=== PATIENT | female | born 1990 | race Caucasian/White ===

== ENCOUNTER → 2017-11-01 | Outpatient (CLI) | payer BC ==
[2017-11-01 09:57] LABS: HEMATOCRIT 36.1 % (37-47); HEMOGLOBIN 12.2 g/dL (12.0-16.0); MEAN CELL VOLUME 87.2 fL (80-100); MEAN CORPUSCULAR HEMOGLOBIN 29.5 pg (25-34); MEAN CORPUSCULAR HGB CONC 33.8 g/dl (32-36); MEAN PLATELET VOLUME 11.1 fL (7.4-10.4); PLATELET COUNT 328 K/uL (130-400); RED CELL DISTRIBUTION WIDTH CV 13.4 % (11.5-14.5); RED CELL DISTRIBUTION WIDTH SD 42.6 fL (36.4-46.3); WHITE BLOOD COUNT 8.86 K/uL (4.8-10.8)
[2017-11-01 10:16] LABS: ALBUMIN 2.5 gm/dl (3.4-5.0); ALT/SGPT 13 U/L (12-78); BLOOD UREA NITROGEN 3 mg/dl (7-18); CREATININE 0.56 mg/dl (0.60-1.20); URIC ACID 4.5 mg/dl (2.6-7.2)
[2017-11-01 10:19] LABS: ALKALINE PHOSPHATASE 141 U/L (45-117); AST/SGOT 13 U/L (15-37); TOTAL PROTEIN 6.4 gm/dl (6.4-8.2)
== END | disposition home or self-care (01) ==
LOC: C.LAB 09:12
PROVIDERS: ATTEND Nurse Practitioner Adult Health
DX: O12.03 Gestational edema, third trimester (principal)

== ENCOUNTER 2017-12-12 21:48 | Inpatient (IN) | payer BC ==
[~2017-12-12] VITALS: Ht 165.1 cm; Wt 94.0 kg
[2017-12-12 22:20] VITALS: BMI 34.5
[2017-12-12] MEDS ORDERED: RANI150T85 PO ×2 (22:23)
[2017-12-12] MEDS ORDERED: PRENTAB26 PO ×2 (22:23)
[2017-12-12] MEDS ORDERED: ACETAMINOPHEN 325 MG TAB PO PRN (22:30)
[2017-12-12] MEDS ORDERED: AZITHROMYCIN 250 MG TAB PO ONE (22:45)
[2017-12-12 22:47] LABS: BASO % 0.2 %; BASO ABS # 0.03 K/uL (0-0.2); EOS % 0.1 %; EOS ABS # 0.01 K/uL (0-0.5); HEMATOCRIT 33.3 % (37-47); HEMOGLOBIN 11.3 g/dL (12.0-16.0); IG# 0.18 K/uL (0.00-0.02); LYMPH % 22.8 %; LYMPH ABS # 3.37 K/uL (1.2-3.4); MEAN CELL VOLUME 88.1 fL (80-100); MEAN CORPUSCULAR HEMOGLOBIN 29.9 pg (25-34); MEAN CORPUSCULAR HGB CONC 33.9 g/dl (32-36); MONO % 9.5 %; NEUT % 66.2 %; NEUT ABS # 9.79 K/uL (1.4-6.5); PLATELET COUNT 282 K/uL (130-400); RED CELL DISTRIBUTION WIDTH CV 14.1 % (11.5-14.5); RED CELL DISTRIBUTION WIDTH SD 45.4 fL (36.4-46.3); WHITE BLOOD COUNT 14.78 K/uL (4.8-10.8)
[2017-12-12 23:08] LABS: ALBUMIN 2.5 gm/dl (3.4-5.0); CALCIUM 8.6 mg/dl (8.5-10.1); CREATININE 0.98 mg/dl (0.60-1.20)
[2017-12-12 23:10] LABS: TOTAL PROTEIN 6.1 gm/dl (6.4-8.2)
[2017-12-12] MEDS ORDERED: LACTATED RINGER'S 1000ML 1,000 ML IV PRN (23:52)
[2017-12-13] MEDS ORDERED: DINOPROSTONE 10 MG INSERT PV ONE
[2017-12-13 00:09] VITALS: Ht 165.1 cm; Wt 94.0 kg
[2017-12-13] MEDS: LACTATED RINGER'S 1000ML 1,000 ML IV SCH ×3 (00:46→15:32)
[2017-12-13] MEDS ORDERED: BUTORPHANOL TARTRATE 1 MG/ML VIAL IV PRN (01:15)
[2017-12-13] MEDS ORDERED: CALCIUM CARBONATE 500 MG CHEWABLE ONE (01:23)
[2017-12-13 06:40] LABS: BASO % 0.2 %; BASO ABS # 0.03 K/uL (0-0.2); EOS % 0.7 %; EOS ABS # 0.09 K/uL (0-0.5); HEMATOCRIT 32.6 % (37-47); IG# 0.09 K/uL (0.00-0.02); LYMPH % 28.8 %; LYMPH ABS # 3.68 K/uL (1.2-3.4); MEAN CELL VOLUME 88.1 fL (80-100); MEAN CORPUSCULAR HEMOGLOBIN 29.7 pg (25-34); MEAN CORPUSCULAR HGB CONC 33.7 g/dl (32-36); MEAN PLATELET VOLUME 12.1 fL (7.4-10.4); MONO % 9.2 %; MONO ABS # 1.18 K/uL (0.11-0.59); NEUT % 60.4 %; NEUT ABS # 7.73 K/uL (1.4-6.5); PLATELET COUNT 269 K/uL (130-400); RED CELL DISTRIBUTION WIDTH CV 14.1 % (11.5-14.5); RED CELL DISTRIBUTION WIDTH SD 45.7 fL (36.4-46.3)
[2017-12-13 07:14] LABS: ALBUMIN 2.4 gm/dl (3.4-5.0); CALCIUM 9.3 mg/dl (8.5-10.1); CREATININE 0.95 mg/dl (0.60-1.20); POTASSIUM 3.6 mmol/L (3.5-5.1)
[2017-12-13 07:17] LABS: TOTAL PROTEIN 5.8 gm/dl (6.4-8.2)
[2017-12-13] MEDS: CALCIUM CARBONATE 500 MG CHEWABLE PO PRN ×3 (07:26→20:03)
[2017-12-13] MEDS ORDERED: MISOPROSTOLTAB 50 MCG TAB PO SCH (15:00)
[2017-12-13] MEDS ORDERED: LACTATED RINGER'S 1000ML 500 ML IV PRN (19:38)
[2017-12-13] MEDS ORDERED: OXYTOCIN 30 UNITS/500ML NSS IV PRN (19:45)
[2017-12-13] MEDS ORDERED: CALCIUM CARBONATE 500 MG CHEWABLE PO SCH (20:00)
[2017-12-13 20:09] LABS: HEMATOCRIT 34.6 % (37-47); HEMOGLOBIN 11.7 g/dL (12.0-16.0); MEAN CELL VOLUME 87.8 fL (80-100); MEAN CORPUSCULAR HEMOGLOBIN 29.7 pg (25-34); MEAN CORPUSCULAR HGB CONC 33.8 g/dl (32-36); MEAN PLATELET VOLUME 12.2 fL (7.4-10.4); PLATELET COUNT 291 K/uL (130-400); RED CELL DISTRIBUTION WIDTH CV 14.1 % (11.5-14.5); RED CELL DISTRIBUTION WIDTH SD 45.1 fL (36.4-46.3); WHITE BLOOD COUNT 13.14 K/uL (4.8-10.8)
[2017-12-13 20:28] LABS: ALBUMIN 2.5 gm/dl (3.4-5.0); CALCIUM 8.7 mg/dl (8.5-10.1); CREATININE 1.02 mg/dl (0.60-1.20)
[2017-12-13 20:32] LABS: TOTAL PROTEIN 6.1 gm/dl (6.4-8.2)
[2017-12-13 20:49] LABS: BASO % 0.3 %; BASO ABS # 0.04 K/uL (0-0.2); EOS % 0.5 %; EOS ABS # 0.07 K/uL (0-0.5); LYMPH % 26.7 %; LYMPH ABS # 3.51 K/uL (1.2-3.4); MONO % 12.6 %; MONO ABS # 1.66 K/uL (0.11-0.59); NEUT % 59.1 %; NEUT ABS # 7.76 K/uL (1.4-6.5)
[2017-12-13] MEDS: ONDANSETRON INJ 2 MG/ML 2 ML VIAL IV PRN (21:57)
[2017-12-13] MEDS: AZITHROMYCIN 250 MG TAB PO SCH (22:00)
[2017-12-13] MEDS ORDERED: LACTATED RINGER'S 1000ML 1,000 ML IV SCH (22:31)
[2017-12-13] MEDS ORDERED: MAGNESIUM SULFATE / WTR 1,000 ML IV ONE (22:31)
[2017-12-13] MEDS ORDERED: HydrALAZINE HCL 20 MG/ML VIAL IV. PRN (22:45)
[2017-12-13] MEDS ORDERED: LABETALOL HCL IV 5 MG/ML 20ML IV PRN (22:45)
[2017-12-13] MEDS: LABETALOL HCL 100 MG TAB PO SCH (23:10)
[2017-12-14] MEDS: LACTATED RINGER'S 1000ML 1,000 ML IV SCH ×2 (00:42→05:46)
[2017-12-14] MEDS ORDERED: FENTANYL 2MCG/ML ROPIV 1.25MG/ML 100ML BAG EPI ONE (02:16)
[2017-12-14] MEDS ORDERED: BUPIVACAINE 0.25% 30 ML VIAL ONE ×2 (02:16→06:03)
[2017-12-14] MEDS ORDERED: FENTANYL CITRATE INJ 50 MCG/1 ML 2 ML VIAL ONE ×2 (02:16→14:39)
[2017-12-14] MEDS ORDERED: EpHEDrine SULFATE INJ 50 MG/ML AMP ONE (02:16)
[2017-12-14] MEDS: ONDANSETRON INJ 2 MG/ML 2 ML VIAL IV PRN ×3 (02:38→21:33)
[2017-12-14] MEDS: CALCIUM CARBONATE 500 MG CHEWABLE PO PRN ×3 (03:20→19:12)
[2017-12-14] MEDS ORDERED: NALOXONE HCL INJ 1 MG in SODIUM CHLORIDE 0.9% 1000ML 1,000 ML IV PRN ×2 (03:21→19:42)
[2017-12-14] MEDS ORDERED: LACTATED RINGER'S 1000ML 500 ML IV PRN ×2 (03:21→19:42)
[2017-12-14] MEDS ORDERED: NALOXONE HCL INJ 0.4 MG/1 ML VIAL/CARP IV PRN (03:30)
[2017-12-14] MEDS ORDERED: NALBUPHINE HCL INJ 10 MG/ML AMP IV PRN ×2 (03:30→19:45)
[2017-12-14] MEDS ORDERED: EpHEDrine SULFATE INJ 50 MG/ML AMP IV PRN ×2 (03:30→19:45)
[2017-12-14] MEDS ORDERED: ONDANSETRON INJ 2 MG/ML 2 ML VIAL IV PRN ×3 (03:30→19:45)
[2017-12-14] MEDS ORDERED: DiphenhydrAMINE HCL 50 MG/ML VIAL IV PRN ×3 (03:30→19:45)
[2017-12-14] MEDS: FENTANYL 2MCG/ML ROPIV 1.25MG/ML 100ML BAG EPI PRN ×4 (05:44→13:12)
[2017-12-14] MEDS ORDERED: CEFAZOLIN IV 2,000 MG in SYRINGE 0 ML IV SCH ×2 (06:00→18:00)
[2017-12-14 06:12] LABS: BASO % 0.2 %; BASO ABS # 0.02 K/uL (0-0.2); EOS % 0.2 %; EOS ABS # 0.02 K/uL (0-0.5); HEMATOCRIT 35.8 % (37-47); HEMOGLOBIN 11.7 g/dL (12.0-16.0); IG# 0.07 K/uL (0.00-0.02); LYMPH % 17.5 %; LYMPH ABS # 2.32 K/uL (1.2-3.4); MEAN CELL VOLUME 89.1 fL (80-100); MEAN CORPUSCULAR HEMOGLOBIN 29.1 pg (25-34); MEAN CORPUSCULAR HGB CONC 32.7 g/dl (32-36); MEAN PLATELET VOLUME 12.5 fL (7.4-10.4); MONO % 7.9 %; MONO ABS # 1.05 K/uL (0.11-0.59); NEUT % 73.7 %; NEUT ABS # 9.76 K/uL (1.4-6.5); NUCLEATED RED BLOOD CELL ABS 0.02 K/uL (0-0); PLATELET COUNT 316 K/uL (130-400); RED CELL DISTRIBUTION WIDTH CV 14.3 % (11.5-14.5); RED CELL DISTRIBUTION WIDTH SD 46.8 fL (36.4-46.3); WHITE BLOOD COUNT 13.24 K/uL (4.8-10.8)
[2017-12-14 06:41] LABS: ALBUMIN 2.5 gm/dl (3.4-5.0); CALCIUM 8.7 mg/dl (8.5-10.1); CREATININE 1.09 mg/dl (0.60-1.20)
[2017-12-14 06:44] LABS: TOTAL PROTEIN 6.1 gm/dl (6.4-8.2)
[2017-12-14] MEDS ORDERED: CITRIC ACID/SODIUM CITRATE 15 ML UDC PO PRN (08:15)
[2017-12-14] MEDS ORDERED: NURSING VERBAL MED ORDER ONE (08:15)
[2017-12-14] MEDS: LABETALOL HCL 100 MG TAB PO SCH ×2 (08:25→20:00)
[2017-12-14] MEDS ORDERED: CITRIC ACID/SODIUM CITRATE 15 ML UDC PO ONE (14:15)
[2017-12-14] MEDS ORDERED: MoRPHine SULFATE PF 1 MG/ML 10 ML AMP/VIAL ONE (14:39)
[2017-12-14] MEDS ORDERED: OXYTOCIN INJ 10 UNITS/ML VIAL ONE ×3 (14:41→16:09)
--- NOTE | 2017-12-14 14:58 | HISTORY & PHYSICAL EXAMINATION ---
DATE OF ADMISSION: 12/12/2017 CHIEF COMPLAINT: 1. The intrauterine at 37 weeks and 6 days gestation. 2. Preeclampsia without severe features and failure to progress. HISTORY OF PRESENT ILLNESS: The patient is a 27-year-old 1, para 0 at 37 weeks and 6 days gestation, who was admitted to labor and delivery on the evening of 12/12/2017 with elevated blood pressures at home. She checked her blood pressures at home in the afternoon and was found to be 140/100 with repeat of 140s/90s. On presentation to labor and delivery, her blood pressures were in the 130s to 140s/70s to 90s and 1+ protein on urinalysis. On her [facility] labs, it was found that she had an elevated AST of 370 and an ALT of 386 with a creatinine of 0.98. Therefore, she was admitted for induction. She was found to be closed, thick, and -3. She was given Cervidil for cervical ripening on the morning of 12/13/2017 and on the afternoon of 12/13/2017, her Cervidil was removed. She was still closed, 50% and -3 station. Her AST and ALT were slightly more elevated than previously. She received an epidural for anesthesia and oxytocin per protocol was used for labor augmentation. She was also started on magnesium sulfate for seizure prophylaxis due to elevating liver enzymes. She was found to be spontaneously ruptured around 06:30 a.m. on 12/14/2017 and she progressed spontaneously throughout the morning. She reached complete dilation at 11:38 a.m. She pushed for greater than 3 hours intermittently without any further descent. She remained at 0 station. Due to maternal exhaustion and failure to progress, the decision was made by the patient and her to proceed with a primary section. Risks, benefits, and alternatives were discussed with the patient and informed consent was obtained. PAST MEDICAL HISTORY: Significant for idiopathic scoliosis. PAST SURGICAL HISTORY: She had wisdom teeth removed. MEDICATIONS: vitamins, Colace, and Zantac. ALLERGIES: MONISTAT AND LACTOSE INTOLERANCE. LABS: Blood type is O negative, group B strep negative, rubella immune, hepatitis B surface antigen negative, RPR nonreactive and HIV negative. PHYSICAL EXAMINATION: VITAL SIGNS: Blood pressure is 143/96, heart rate is 104, respiration rate of 16, and temperature 97.8. GENERAL: The patient was awake, alert and oriented x3. HEART: Regular rate and rhythm. LUNGS: Clear to auscultation bilaterally. ABDOMEN: Gravid uterus, appropriate gestational age. Bowel sounds present x4. EXTREMITIES: No clubbing, cyanosis or calf tenderness. heart tones are category 1. ASSESSMENT AND PLAN: A 27-year-old 1, para 0 at 38 weeks and 1 day gestation was admitted to labor and delivery for preeclampsia without severe features along with elevated liver enzymes. Despite labor induction and augmentation, she failed to progress greater than 0 station. Due to failure to progress and maternal exhaustion, decision was made to proceed with a primary section. [place]
[2017-12-14] MEDS ORDERED: METHYLERGONOVINE MALEATE 0.2 MG/ML AMP ONE (15:10)
[2017-12-14] MEDS ORDERED: PHENYLEPHRINE HCL INJ 10 MG/ML VIAL ONE (15:55)
[2017-12-14] MEDS ORDERED: ONDANSETRON INJ 2 MG/ML 2 ML VIAL ONE (16:04)
[2017-12-14] MEDS ORDERED: OXYTOCIN INJ 30 UNITS in LACTATED RINGER'S 1000ML 1,000 ML IV SCH (16:44)
[2017-12-14] MEDS ORDERED: LACTATED RINGER'S 1000ML 1,000 ML IV SCH (16:44)
--- NOTE | 2017-12-14 16:44 | [facility] Post Operative Brief Note ---
Immediate Operative Summary Operative Date Dec 14, 2017. Pre-Operative Diagnosis at 38.1 weeks, Preeclampsia without severe features, Failure to progress Post-Operative Diagnosis Same Procedure(s) Performed Primary Low Transverse Section Surgeon Dr. Earl Utility Helicopter Repairer Surgeon(s) Dilcia Wilkinson, RN Estimated Blood Loss 600 Findings Consistent with Post-Op Diagnosis Fluids (cc crystalloids) 1200 Specimens Placenta Cord blood Drains Arnold to gravity Anesthesia Type Spinal Complication(s) none Disposition Accompanied Pt To Recover: no Disposition: L&D
[2017-12-14] MEDS ORDERED: DIPHTHERIA/TETANUS/PERTUSSIS 0.5 ML SYR/VIAL IM. ONE (16:45)
[2017-12-14] MEDS ORDERED: SENNA 8.6 MG TAB PO PRN (16:45)
[2017-12-14] MEDS ORDERED: OXYCODONE/ACETAMINOPHEN 5-325 TAB PO PRN (16:45)
[2017-12-14] MEDS ORDERED: SUPERCREAM 0.870 % 15GM JAR EXT PRN (16:45)
[2017-12-14] MEDS ORDERED: LANOLIN OINT EXT PRN (16:45)
[2017-12-14] MEDS ORDERED: MAGNESIUM HYDROXIDE SUSP 30 ML UDC PO PRN (16:45)
[2017-12-14] MEDS ORDERED: BENZOCAINE 20% AER SPR 82.5 GM CAN EXT PRN (16:45)
[2017-12-14] MEDS ORDERED: KETOROLAC TROMETHAMINE 30 MG/ML VIAL IV. PRN ×2 (16:45→19:45)
[2017-12-14] MEDS ORDERED: HYDROCORTISONE ACETATE 25 MG SUPP PR PRN (16:45)
[2017-12-14] MEDS: SIMETHICONE 80 MG CHEW PO SCH ×2 (17:00→21:00)
--- NOTE | 2017-12-14 17:41 | OPERATIVE REPORT ---
DATE OF OPERATION: 12/14/2017 PREOPERATIVE DIAGNOSES: 1. Intrauterine at 38 weeks and 1 day gestation. 2. Preeclampsia without severe feature with elevated liver enzymes 3. Failure to progress. POSTOPERATIVE DIAGNOSES: Same. OPERATIVE PROCEDURE: Primary low transverse section. SURGEON: Dr. Vito Earl. LENS POLISHER: Dilcia Avelar RN ANESTHESIA: Spinal. ESTIMATED BLOOD LOSS: 600 mL. IV FLUIDS: 1200 mL crystalloids. URINE OUTPUT: 120 mL clear yellow urine. SPECIMENS: Placenta and cord blood. DRAINS: Arnold to gravity. COMPLICATIONS: None. DISPOSITION: To labor and delivery. OPERATIVE FINDINGS: The patient delivered a viable male infant in the occiput posterior position at 16:01 on 12/14/2017 via primary low transverse section. Baby weighs 7 pounds 14 ounces with Apgars of 8 at 1 minute 9 at 5 minutes. Please see supervisor photoengraving's notes for further baby assessment. Cord blood was obtained and an intact placenta with 3-vessel cord was delivered at 16:02 and sent to pathology. Normal uterus and bilateral tubes and ovaries were noted. Both the patient and baby tolerated the surgery well and were sent to recovery with stable vital signs. INDICATIONS FOR PROCEDURE: The patient is a 27-year-old 1, para 0 at 38 weeks and 1 day gestation, who was admitted to labor and delivery on 12/12/2017 for induction of labor secondary to preeclampsia without severe features. Her blood pressures were in the mild range from 140s to 150s/90s to 100s. Her AST and ALT were found to be elevated. She was given Cervidil 10 mg intravaginally on the evening of admission. She received an epidural for anesthesia and oxytocin for labor augmentation. Spontaneous rupture of membranes was noted at 06:20 a.m. on 12/14/2017. She reached complete dilation at 11:38 a.m. on 12/14/2017. Despite adequate contractions and pushing effort, she failed to progress any further than 0 station. Due to maternal exhaustion and failure to progress, a decision was made to proceed with a primary section. OPERATIVE PROCEDURE IN DETAIL: The patient was taken to the operating room, where spinal anesthesia was administered. She was immediately placed in dorsal supine position with a left lateral tilt and was prepped and draped in a manner appropriate for the procedure. Once anesthesia was found to be adequate, a Pfannenstiel skin incision was made 2 fingerbreadths above the pubic symphysis and was carried down through to a layer of the rectus fascia. Fascia was nicked in the midline and extended bilaterally with curved Bran scissors. The superior aspect of the fascial incision was grasped with Latricia clamps, elevated, and rectus muscles were dissected off with the use of the electrocautery. Likewise, the inferior aspect of the fascial incision was grasped with Latricia clamps, elevated, and rectus muscles were dissected off the use of the curved Brna scissors. Rectus muscles were in midline. Peritoneum was grasped with hemostats x2 and entered with Metzenbaum scissors. Peritoneal incision was then extended cephalocaudally with gentle traction. Bladder blade was then placed within the abdomen. The vesicouterine peritoneum was then identified and a bladder flap was created with the Metzenbaum scissors and digital traction. The bladder flap was reincorporated beneath the Neo blade. A transverse incision was then made on the uterus and extended bilaterally with digital traction. The head was identified and delivered through the incision and without complication. This baby was delivered and was bulb suctioned at delivery. Cord was clamped x2 and cut. Baby was immediately handed to an awaiting supervisor photoengraving for further evaluation and management. Please see their notes for further baby assessment. Cord blood was then obtained and intact placenta with 3-vessel cord was delivered manually through the incision and sent to pathology. The uterus was then exteriorized and wrapped in a moist laparotomy sponge. The uterus was then cleared of any trailing membranes and debris with a laparotomy sponge. The uterine incision was then grasped with ring forceps at 4 quadrants was then closed with 0 Vicryl suture in continuous locking fashion. A second 0 Vicryl suture was used in imbricating fashion to ensure hemostasis. Any residual bleeding was then suture ligated with 0 Vicryl suture in a [id number] interrupted fashion. Excellent hemostasis was noted. The posterior cul-de-sac was then irrigated with warm saline solution. The anterior cul-de-sac was also irrigated with warm saline solution. The bladder flap was reapproximated to the lower uterine segment with 2-0 Vicryl suture in continuous running fashion. The uterus was then placed back within its normal anatomic position within the abdomen. The anterior cul-de-sac was then irrigated once again noting hemostasis at the incision. All instruments were then removed from the abdomen. The peritoneum was then grasped with Emilia clamps and was closed with 2-0 Vicryl suture in continuous running fashion. Rectus fascia was then closed with 0 Vicryl suture in continuous running fashion. Skin was then closed with zia. Excellent hemostasis was noted through all tissue layers. Both the patient and baby tolerated the surgery well and were sent to recovery with stable vital signs. I attest to the content of the Intraoperative Record and any orders documented therein. Any exceptions are noted below. CELI
--- NOTE | 2017-12-14 17:48 | Anesthesiology Progress Note ---
Anesthesia Post Op Note Date & Time Dec 14, 2017 at 17:48 Vital Signs Pain Intensity: 2 Notes Mental Status: alert / awake / arousable, participated in evaluation Pt Amnestic to Procedure: Yes Nausea / Vomiting: adequately controlled Pain: adequately controlled Airway Patency, RR, SpO2: stable & adequate BP & HR: stable & adequate Hydration State: stable & adequate Neuraxial Anesthesia: was administered, sensory block is resolving Anesthetic Complications: no major complications apparent
[2017-12-14 19:01] LABS: HEMATOCRIT 38.1 % (37-47); HEMOGLOBIN 12.9 g/dL (12.0-16.0); MEAN CELL VOLUME 88.6 fL (80-100); MEAN CORPUSCULAR HGB CONC 33.9 g/dl (32-36); MEAN PLATELET VOLUME 12.1 fL (7.4-10.4); NUCLEATED RED BLOOD CELL ABS 0.04 K/uL (0-0); PLATELET COUNT 261 K/uL (130-400); RED CELL DISTRIBUTION WIDTH CV 14.5 % (11.5-14.5); WHITE BLOOD COUNT 28.01 K/uL (4.8-10.8)
[2017-12-14 19:21] LABS: CALCIUM 8.5 mg/dl (8.5-10.1); CREATININE 1.49 mg/dl (0.60-1.20); POTASSIUM 4.2 mmol/L (3.5-5.1)
[2017-12-14 19:26] LABS: BASO % 0.1 %; BASO ABS # 0.02 K/uL (0-0.2); IG# 0.23 K/uL (0.00-0.02); LYMPH ABS # 1.69 K/uL (1.2-3.4); MONO % 9.2 %; MONO ABS # 2.59 K/uL (0.11-0.59); NEUT % 83.9 %; NEUT ABS # 23.48 K/uL (1.4-6.5)
[2017-12-14] MEDS ORDERED: SODIUM CHLORIDE 0.9% 1000ML 1,000 ML IV PRN (19:42)
[2017-12-14] MEDS ORDERED: NALOXONE HCL INJ 0.08 MG in SYRINGE 1.8 ML IV PRN (19:42)
[2017-12-14] MEDS ORDERED: MEPERIDINE HCL 25 MG/ML CARP IV PRN (19:45)
[2017-12-14] MEDS ORDERED: NALOXONE HCL 0.4 MG/1 ML VIAL/CARP IV PRN (19:45)
[2017-12-14] MEDS ORDERED: MoRPHine SULFATE 2 MG/ML CARP IV PRN (19:45)
[2017-12-14] MEDS ORDERED: NO NARCOTICS OR SEDATIVES SCH (19:45)
[2017-12-14] MEDS ORDERED: MoRPHine SULFATE PF 1 MG/ML 10 ML AMP/VIAL EPI PRN (19:45)
[2017-12-14] MEDS: DOCUSATE SODIUM 100 MG CAP PO SCH (20:00)
[2017-12-14] MEDS: AZITHROMYCIN 250 MG TAB PO SCH (22:00)
[2017-12-15] MEDS: CALCIUM CARBONATE 500 MG CHEWABLE PO PRN ×2 (01:53→10:29)
[2017-12-15 05:06] LABS: HEMATOCRIT 36.2 % (37-47); HEMOGLOBIN 11.6 g/dL (12.0-16.0); MEAN CELL VOLUME 88.9 fL (80-100); MEAN CORPUSCULAR HEMOGLOBIN 28.5 pg (25-34); MEAN PLATELET VOLUME 12.5 fL (7.4-10.4); PLATELET COUNT 312 K/uL (130-400); RED CELL DISTRIBUTION WIDTH CV 14.5 % (11.5-14.5); RED CELL DISTRIBUTION WIDTH SD 47.2 fL (36.4-46.3); WHITE BLOOD COUNT 27.38 K/uL (4.8-10.8)
[2017-12-15 05:25] LABS: BASO % 0.1 %; BASO ABS # 0.02 K/uL (0-0.2); EOS % 0.1 %; EOS ABS # 0.04 K/uL (0-0.5); IG# 0.19 K/uL (0.00-0.02); LYMPH % 13.6 %; LYMPH ABS # 3.73 K/uL (1.2-3.4); MONO % 7.7 %; MONO ABS # 2.12 K/uL (0.11-0.59); NEUT % 77.8 %; NEUT ABS # 21.28 K/uL (1.4-6.5)
[2017-12-15 05:27] LABS: CALCIUM 8.2 mg/dl (8.5-10.1); CREATININE 1.5 mg/dl (0.60-1.20)
[2017-12-15] MEDS ORDERED: NURSING VERBAL MED ORDER ONE (06:30)
[2017-12-15] MEDS ORDERED: MAGNESIUM SULFATE / WTR 1,000 ML IV SCH (07:00)
[2017-12-15] MEDS ORDERED: RANITIDINE HCL 150 MG TAB PO SCH (08:00)
[2017-12-15] MEDS: LABETALOL HCL 100 MG TAB PO SCH ×2 (08:54→20:31)
[2017-12-15] MEDS ORDERED: DC INTRASPINAL MORPHINE SCH (10:00)
[2017-12-15] MEDS: SIMETHICONE 80 MG CHEW PO SCH ×4 (10:29→20:31)
[2017-12-15] MEDS: PRENATAL VITAMIN TAB PO SCH (10:30)
[2017-12-15] MEDS: FERROUS SULFATE 325 MG TAB PO SCH (10:30)
[2017-12-15] MEDS: DOCUSATE SODIUM 100 MG CAP PO SCH ×2 (10:32→20:31)
[2017-12-15] MEDS: IBUPROFEN 600 MG TAB PO PRN ×4 (10:35→23:18)
[2017-12-15 12:49] VITALS: BP 146/91; PULSE 91; TEMP 36.9
[2017-12-15] MEDS ORDERED: SODIUM CHLORIDE 0.65% NA SOLN 45 ML (OCEAN) ONE (13:02)
[2017-12-15 15:45] VITALS: BP 147/92; PULSE 93; TEMP 37.1; O2SAT 96
[2017-12-15 19:06] LABS: ALBUMIN 2.1 gm/dl (3.4-5.0); CALCIUM 7.8 mg/dl (8.5-10.1); CREATININE 1.41 mg/dl (0.60-1.20); POTASSIUM 3.8 mmol/L (3.5-5.1)
[2017-12-15 19:08] LABS: TOTAL PROTEIN 5.4 gm/dl (6.4-8.2)
[2017-12-15 20:29] VITALS: BP 138/81
[2017-12-15] MEDS ORDERED: BISACODYL 5 MG TABEC PO ONE (22:00)
[2017-12-15 23:40] VITALS: BP 137/76; PULSE 86; TEMP 36.9; O2SAT 97
[2017-12-16] MEDS: IBUPROFEN 600 MG TAB PO PRN ×2 (06:41→17:17)
[2017-12-16 07:09] LABS: BASO % 0.2 %; BASO ABS # 0.03 K/uL (0-0.2); EOS % 1.1 %; EOS ABS # 0.19 K/uL (0-0.5); HEMATOCRIT 30.1 % (37-47); HEMOGLOBIN 9.9 g/dL (12.0-16.0); IG# 0.05 K/uL (0.00-0.02); LYMPH % 18.8 %; LYMPH ABS # 3.36 K/uL (1.2-3.4); MEAN CELL VOLUME 89.6 fL (80-100); MEAN CORPUSCULAR HEMOGLOBIN 29.5 pg (25-34); MEAN CORPUSCULAR HGB CONC 32.9 g/dl (32-36); MEAN PLATELET VOLUME 11.8 fL (7.4-10.4); MONO % 9.8 %; MONO ABS # 1.76 K/uL (0.11-0.59); NEUT % 69.8 %; PLATELET COUNT 300 K/uL (130-400); RED CELL DISTRIBUTION WIDTH CV 14.9 % (11.5-14.5); RED CELL DISTRIBUTION WIDTH SD 48.4 fL (36.4-46.3); WHITE BLOOD COUNT 17.89 K/uL (4.8-10.8)
[2017-12-16 07:30] LABS: ALBUMIN 1.8 gm/dl (3.4-5.0); CALCIUM 7.3 mg/dl (8.5-10.1); CREATININE 1.19 mg/dl (0.60-1.20); POTASSIUM 3.9 mmol/L (3.5-5.1)
[2017-12-16 07:33] LABS: TOTAL PROTEIN 4.9 gm/dl (6.4-8.2)
[2017-12-16 08:20] VITALS: BP 142/89; PULSE 82; TEMP 36.8; O2SAT 98
[2017-12-16] MEDS: FERROUS SULFATE 325 MG TAB PO SCH (08:22)
--- NOTE | 2017-12-16 08:22 | Surgery Progress Note ---
Surgery Progress Note Date of Service Dec 16, 2017. Subjective Post OP Day: 2 + feeling well, + ambulating, + flatus, + pain controlled, + diet Objective Vital Signs: Date Time Temp Pulse Resp B/P (MAP) Pulse Ox O2 Delivery O2 Flow Rate FiO2 12/15/17 23:40 97 Room Air 12/15/17 23:40 36.9 86 16 137/76 (96) 97 Room Air 12/15/17 20:29 138/81 (100) 12/15/17 15:45 Room Air 12/15/17 15:45 37.1 93 20 147/92 (110) 96 Room Air 12/15/17 12:49 36.9 91 18 146/91 Abdomen: non tender, non distended, soft Incision(s): clean, dry, intact Extremities: normal inspection, no pedal edema, no calf tenderness Laboratory Results: Results Past 24 Hours Test 12/15/17 18:33 12/16/17 06:30 Range/Units Sodium Level 138 141 136-145 mmol/L Potassium Level 3.8 3.9 3.5-5.1 mmol/L Chloride Level 106 109 98-107 mmol/L Carbon Dioxide Level 25 25 21-32 mmol/L Anion Gap 7.0 7.0 3-11 mmol/L Blood Urea Nitrogen 17 19 7-18 mg/dl Creatinine 1.41 1.19 0.60-1.20 mg/dl Est Creatinine Clear Calc Drug Dose 66.7 79.1 ml/min Estimated GFR () 58.2 71.4 Estimated GFR (Non- 50.2 61.6 BUN/Creatinine Ratio 12.1 15.6 10-20 Random Glucose 91 75 70-99 mg/dl Calcium Level 7.8 7.3 8.5-10.1 mg/dl Total Bilirubin 0.6 0.4 0.2-1 mg/dl Aspartate Amino Transf (AST/SGOT) 52 32 15-37 U/L Alanine Aminotransferase (ALT/SGPT) 141 98 12-78 U/L Alkaline Phosphatase 197 172 45-117 U/L Total Protein 5.4 4.9 6.4-8.2 gm/dl Albumin 2.1 1.8 3.4-5.0 gm/dl Globulin 3.3 3.1 2.5-4.0 gm/dl Albumin/Globulin Ratio 0.6 0.6 0.9-2 White Blood Count 17.89 4.8-10.8 K/uL Red Blood Count 3.36 4.2-5.4 M/uL Hemoglobin 9.9 12.0-16.0 g/dL Hematocrit 30.1 37-47 % Mean Corpuscular Volume 89.6 80-100 fL Mean Corpuscular Hemoglobin 29.5 25-34 pg Mean Corpuscular Hemoglobin Concent 32.9 32-36 g/dl Platelet Count 300 130-400 K/uL Mean Platelet Volume 11.8 7.4-10.4 fL Neutrophils (%) (Auto) 69.8 % Lymphocytes (%) (Auto) 18.8 % Monocytes (%) (Auto) 9.8 % Eosinophils (%) (Auto) 1.1 % Basophils (%) (Auto) 0.2 % Neutrophils # (Auto) 12.50 1.4-6.5 K/uL Lymphocytes # (Auto) 3.36 1.2-3.4 K/uL Monocytes # (Auto) 1.76 0.11-0.59 K/uL Eosinophils # (Auto) 0.19 0-0.5 K/uL Basophils # (Auto) 0.03 0-0.2 K/uL RDW Standard Deviation 48.4 36.4-46.3 fL RDW Coefficient of Variation 14.9 11.5-14.5 % Immature Granulocyte % (Auto) 0.3 % Immature Granulocyte # (Auto) 0.05 0.00-0.02 K/uL Assessment & Plan pod#2 TENT D/C IN am regular diet
[2017-12-16] MEDS: DOCUSATE SODIUM 100 MG CAP PO SCH ×2 (08:23→20:07)
[2017-12-16] MEDS: SIMETHICONE 80 MG CHEW PO SCH ×4 (08:23→20:07)
[2017-12-16] MEDS: LABETALOL HCL 100 MG TAB PO SCH ×2 (08:23→20:07)
[2017-12-16] MEDS: PRENATAL VITAMIN TAB PO SCH (08:23)
[2017-12-16] MEDS: OXYCODONE/ACETAMINOPHEN 5-325 TAB PO PRN ×3 (09:05→23:20)
[2017-12-16 16:05] VITALS: BP 153/104; PULSE 103; TEMP 36.8; O2SAT 98
[2017-12-16 16:45] VITALS: BP 149/95
[2017-12-16] MEDS ORDERED: BISACODYL 10 MG SUPP PR PRN (16:45)
[2017-12-16 17:14] VITALS: BP 152/90
[2017-12-16 23:20] VITALS: BP 148/88; PULSE 90; TEMP 36.8; O2SAT 97
[2017-12-17] MEDS: SIMETHICONE 80 MG CHEW PO SCH (07:25)
[2017-12-17] MEDS: PRENATAL VITAMIN TAB PO SCH (07:25)
[2017-12-17] MEDS: LABETALOL HCL 100 MG TAB PO SCH (07:25)
[2017-12-17] MEDS: FERROUS SULFATE 325 MG TAB PO SCH (07:25)
[2017-12-17] MEDS: OXYCODONE/ACETAMINOPHEN 5-325 TAB PO PRN ×2 (07:26→12:49)
[2017-12-17] MEDS: IBUPROFEN 600 MG TAB PO PRN ×2 (07:27→12:49)
[2017-12-17 07:30] VITALS: BP 154/97; TEMP 37.5; O2SAT 97
[2017-12-17] MEDS: DOCUSATE SODIUM 100 MG CAP PO SCH (08:25)
--- NOTE | 2017-12-17 09:05 | OB/GYN Progress Note ---
SHIPPING [employer]IGHER Progress Note Date of Service: Dec 17, 2017. Patient is seen and examined. She feels well, no complaints. Likes to be discharged. Pain is under control with oral meds. Ambulating without dizziness Voiding without difficulty Tolerating regular diet with out N&V Flatus + BM + Bleeding is minimal No fever/ chills/ CP/ SOB/ N&V/ Leg pain Breast and bottle feeding without problems Date Time Temp Pulse Resp B/P (MAP) Pulse Ox O2 Delivery O2 Flow Rate FiO2 12/16/17 23:20 36.8 90 18 148/88 (108) 97 Room Air 12/16/17 23:20 97 Room Air 12/16/17 17:14 152/90 (110) 12/16/17 16:45 149/95 (113) 12/16/17 16:05 Room Air 12/16/17 16:05 36.8 103 18 153/104 (120) 98 Room Air Test 11/01/17 08:00 11/01/17 09:36 12/12/17 22:30 12/13/17 19:41 Urine Collection Time 24 Urine Total Volume 1675 Urine Total Protein 24 Hour 204.4 H Urine Total Protein 12.2 H Uric Acid 4.5 Direct Bilirubin < 0.1 Urine Color YELLOW Urine Appearance CLOUDY Urine pH 5.5 Urine Specific [place] 1.011 Urine Protein 1+ Urine Glucose (UA) NEG Urine Ketones NEG Urine Occult Blood NEG Urine Nitrite NEG Urine Bilirubin NEG Urine Urobilinogen NEG Urine Leukocyte Esterase NEG Urine WBC (Auto) 1-5 Urine RBC (Auto) 0-4 Urine Hyaline Casts (Auto) 1-5 Urine Epithelial Cells (Auto) >30 H Urine Bacteria (Auto) 1+ H Red Blood Cell Morphology Unremarkable Lactate Dehydrogenase 335 H Test 12/14/17 05:58 12/14/17 18:45 12/15/17 04:52 12/15/17 18:33 Nucleated RBC Absolute Count (auto) 0.02 H 0.04 H Nucleated Red Blood Cells % 0.2 0.1 Total Bilirubin 0.6 0.6 Alkaline Phosphatase 256 H 197 H Total Protein 6.1 L 5.4 L Albumin 2.5 L 2.1 L Globulin 3.6 3.3 Albumin/Globulin Ratio 0.7 L 0.6 L White Blood Count 28.01 #H 27.38 H Red Blood Count 4.30 4.07 L Hemoglobin 12.9 11.6 L Hematocrit 38.1 36.2 L Mean Corpuscular Volume 88.6 88.9 Mean Corpuscular Hemoglobin 30.0 28.5 Mean Corpuscular Hemoglobin Concent 33.9 32.0 Platelet Count 261 312 Mean Platelet Volume 12.1 H 12.5 H Neutrophils (%) (Auto) 83.9 77.8 Lymphocytes (%) (Auto) 6.0 13.6 Monocytes (%) (Auto) 9.2 7.7 Eosinophils (%) (Auto) 0.0 0.1 Basophils (%) (Auto) 0.1 0.1 Neutrophils # (Auto) 23.48 H 21.28 H Lymphocytes # (Auto) 1.69 3.73 H Monocytes # (Auto) 2.59 H 2.12 H Eosinophils # (Auto) 0.00 0.04 Basophils # (Auto) 0.02 0.02 RDW Standard Deviation 47.0 H 47.2 H RDW Coefficient of Variation 14.5 14.5 Immature Granulocyte % (Auto) 0.8 0.7 Immature Granulocyte # (Auto) 0.23 H 0.19 H Lactate Dehydrogenase 327 H 332 H Red Blood Cell Morphology Unremarkable Sodium Level 137 138 Potassium Level 4.0 3.8 Chloride Level 104 106 Carbon Dioxide Level 23 25 Anion Gap 10.0 7.0 Blood Urea Nitrogen 15 17 Creatinine 1.50 H 1.41 H Est Creatinine Clear Calc Drug Dose 62.7 66.7 Estimated GFR () 54.0 58.2 Estimated GFR (Non- 46.6 50.2 BUN/Creatinine Ratio 9.8 L 12.1 Random Glucose 87 91 Calcium Level 8.2 L 7.8 L Magnesium Level 6.1 H Aspartate Amino Transferase (AST) 93 H 52 H Alanine Aminotransferase (ALT) 200 H 141 H Test 12/16/17 06:30 White Blood Count 17.89 H Red Blood Count 3.36 L Hemoglobin 9.9 L Hematocrit 30.1 L Mean Corpuscular Volume 89.6 Mean Corpuscular Hemoglobin 29.5 Mean Corpuscular Hemoglobin Concent 32.9 Platelet Count 300 Mean Platelet Volume 11.8 H Neutrophils (%) (Auto) 69.8 Lymphocytes (%) (Auto) 18.8 Monocytes (%) (Auto) 9.8 Eosinophils (%) (Auto) 1.1 Basophils (%) (Auto) 0.2 Neutrophils # (Auto) 12.50 H Lymphocytes # (Auto) 3.36 Monocytes # (Auto) 1.76 H Eosinophils # (Auto) 0.19 Basophils # (Auto) 0.03 RDW Standard Deviation 48.4 H RDW Coefficient of Variation 14.9 H Immature Granulocyte % (Auto) 0.3 Immature Granulocyte # (Auto) 0.05 H Sodium Level 141 Potassium Level 3.9 Chloride Level 109 H Carbon Dioxide Level 25 Anion Gap 7.0 Blood Urea Nitrogen 19 H Creatinine 1.19 Est Creatinine Clear Calc Drug Dose 79.1 Estimated GFR () 71.4 Estimated GFR (Non- 61.6 BUN/Creatinine Ratio 15.6 Random Glucose 75 Calcium Level 7.3 L Total Bilirubin 0.4 Aspartate Amino Transferase (AST) 32 Alanine Aminotransferase (ALT) 98 H Alkaline Phosphatase 172 H Total Protein 4.9 L Albumin 1.8 L Globulin 3.1 Albumin/Globulin Ratio 0.6 L PE: General: Alert, orientedx3, NAD CVS: S1S2 RRR Lungs; CTAB Abd: soft, NT, ND, BS+, fundus firm, below Umbilicus Incision: Clean, dry, zia intact Perineum intact, Lochia rubra minimal Ext; NT, no edema AP: 27 yo s/p C Section, pod# 3, on Labetalol VSS Afebrile doing well LFT's improving Desires d/c home Instructions were given when to call All questions were answered D/C home , f/u in office
[2017-12-17] MEDS ORDERED: MTR600X PO ×2 (09:06)
[2017-12-17] MEDS ORDERED: OXYC-57 PO ×3 (09:06→23:50)
[2017-12-17] MEDS ORDERED: LBT100 PO ×2 (09:06)
--- NOTE | 2017-12-17 09:07 | Discharge Instructions ---
Discharge Instructions Date of Service Dec 17, 2017. Admission Reason for Admission: Elev. Bp In Third Trimester, Elev. Liver Enzymes Discharge Discharge Diagnosis / Problem: Primary C section Discharge Goals Goal(s): Routine recovery after delivery, Routine recovery after Medications Continue Dispensed Medications: lansinoh, other Activity Recommendations Activity Limitations: as noted below ACTIVITY RECOMMENDATIONS: * Gradual return to full activity over the next 2-3 weeks. * No lifting - nothing heavier than baby over the next 2-3 weeks. * Do not engage in vigorous exercise, sexual activity or sports until cleared by your physician. * Do not drive or operate any motorized equipment until cleared by your physician. * You may shower/bathe daily. BREAST CARE: If you are not breast feeding: * Wear a supportive bra 24 hours a day for one to two weeks. * Avoid stimulating your breasts and nipples as much as possible during the first few weeks after delivery. * When taking a shower, have the warm water hit your back, not breasts. * When your breasts feel full, apply ice packs. Usually three to four times a day helps ease the discomfort. * Take a mild pain medication (Tylenol/Motrin) when you are uncomfortable. If breast feeding: * Use breast milk to lubricate nipples. Lansinoh cream may be used for sore nipples. You do not need to remove cream prior to breast feeding. If using a different brand of cream, check the label for directions regarding removal of cream prior to nursing. * Wear a supportive bra. * If having problems with breasts or breast feeding, call a lean process deployment consultant or your health care provider. OVER THE COUNTER MEDICATION: * For discomfort or pain, you may use Acetaminophen (Tylenol), Ibuprofen (Advil ), or Naproxen (Aleve) following the package directions. * For constipation you may use Colace following the package directions. SPECIAL CARE INSTRUCTIONS: When you are discharged from the hospital, it is important for you to follow the instructions listed below: * During the first week at home, you should be able to care for yourself and your baby. In addition, the usual light household activities are encouraged. * Limit your activities to the way you feel. Do not try to clean the house or move furniture. Be sensible. * If you actively engage in sports and have done so up until the time of your delivery, you may resume these activities as soon as you feel able. This may take up to one month or even longer. Use good judgment. * Continue to take your vitamins for at least six weeks after the of your baby. * Your diet need not be limited unless you were on a special diet before your delivery. Breast-feeding mothers need around 2500 calories per day and at least 64-80 ounces of fluid per day (8 to 10 glasses). * You should eat foods from the four major food groups. Crash diets or fad diets are to be avoided. Eating lean meats, fresh fruits and vegetables, low-fat dairy products, high fiber foods and a regular exercise program, will help you get back to your pre- weight without putting your health at risk. * Constipation is sometimes a problem after delivery. Take a mild laxative as needed. If breast feeding, Milk of Magnesia is acceptable to use. You may use a suppository or Fleets enema if no episiotomy. * A daily shower or tub bath is suggested. Be sure to thoroughly and gently dry the perineum. * A bloody vaginal discharge will usually continue until around four weeks post . A small amount of bleeding may continue for as long as six weeks. Vaginal discharge changes from the bright red bleeding after delivery to pink then brownish and finally yellowish-pink before becoming white and disappearing. * Bleeding may increase with activity. Your first period may come in 4-8 weeks. If you are breast feeding, your period may be delayed even longer. * [place] (sex) can begin whenever both you and your partner feel comfortable and do not have any form of genital infection. It is recommended that you wait at least six weeks for internal and external healing to occur. If you have questions, please talk to your health care practitioner. A condom should be used to prevent infection and . * Foreplay, gentle intercourse and lubrication is very important the first several times to prevent pain. A water-based lubricant such as K-Y jelly or Astroglide may be used. * Tampons and/or Douching should be avoided until after six weeks check-up. * If you have RH negative blood and your baby is RH positive, you will receive RHOGAM by injection prior to discharge. The nurse will give you a card to keep with you that has the date and place that you received RHOGAM after delivery. * During your care, you had a Rubella screen done to check for the presence of rubella antibodies in your blood. If your test was negative, you will receive a Rubella vaccine prior to discharge. This vaccine may cause a fever, soreness at the injection site and flu-like symptoms. If these symptoms persist, notify your health care practitioner. is not advised for three months after a Rubella vaccine. * Verbalizes understanding of car seat law as reviewed with patient nursing. * Car Seat hand-out given and reviewed with patient by nursing. * Shaken baby information reviewed with patient by nursing. Call you doctor if: * Heavy bleeding (saturating several pads an hour) or passing clots the size of your fist. * A fever >101 degrees F (38.3 degrees C) on two occasions four hours apart and /or chills. * Unusual pain in the pelvic or vaginal areas. Pain should improve each day . * Call the doctor for any increased redness, drainage or swelling around the incision and any pain unrelieved by prescribed pain medication. * Any signs or symptoms of phlebitis (possible blood clots forming in the veins ): leg pain, warm, red or swollen area on leg. * "Baby Blues" lasting longer than two weeks. If you have any questions or concerns, call your health care practitioner at . FOLLOW-UP VISIT: * Incision check (staple removal) in 1 week. Please call doctor's office at to set up appointment. * Please call the office at to schedule a 6 week examination. It is important you keep this appointment. * It is important for you to make arrangements for either yearly or twice yearly check-ups thereafter. . Current Hospital Diet Patient's current hospital diet: Regular OB Diet Discharge Diet Recommended Diet: Regular Diet Procedures Procedures Performed: Primary Low Transverse Section Pending Studies Studies pending at discharge: no Medical Emergencies . Who to Call and When: Medical Emergencies: If at any time you feel your situation is an emergency, please call [phone] immediately. . Non-Emergent Contact Non-Emergency issues call your: Specialist Call Non-Emergent contact if: you have a fever, temperature is above 100.5, your pain is not controlled, your pain is worsening, wound has increased drainage, wound has increased redness, wound has increased pain, you have any medication questions . . "Provider Documentation" section prepared by Joseph Lowe. .
[2017-12-17 12:00] VITALS: PULSE 90; TEMP 37.5
[2017-12-17 12:22] VITALS: BP 150/93
[2017-12-17] MEDS ORDERED: LABE100T23 PO (23:50)
[2017-12-17] MEDS ORDERED: IBUP-1427 PO (23:50)
[2017-12-18] MEDS ORDERED: FURO-85 PO (01:42)
== END 2017-12-17 14:35 | disposition home or self-care (01) | DRG 766 ==
LOC: C.OPB 21:48 → C.LD 21:48 → C.OPB 23:55 → C.OBG 12-15 15:07
PROVIDERS: ADMIT Obstetrics & Gynecology; ATTEND Obstetrics & Gynecology
PROC: 3E0P7GC Introduction of Other Therapeutic Substance into Female Reproductive, Via Natural or Artificial Opening (ICD-10-PCS; 2017-12-12)
PROC: 10D00Z1 Extraction of Products of Conception, Low, Open Approach (ICD-10-PCS; principal; 2017-12-14 15:07)
DX: O62.1 Secondary uterine inertia (principal); O63.0 Prolonged first stage (of labor); O14.94 Unspecified pre-eclampsia, complicating childbirth; Z23 Encounter for immunization; Z3A.37 37 weeks gestation of pregnancy

== ENCOUNTER 2017-12-17 22:41 | Emergency (ER) | payer BC ==
[~2017-12-17] VITALS: Ht 165.1 cm; Wt 89.8 kg
[~2017-12-17 22:41] MED LIST: LBT100 PO; MTR600X PO; OXYC-57 PO; PRENTAB26 PO; RANI150T85 PO
[2017-12-17 22:50] VITALS: TEMP 36.6; Ht 165.1 cm; Wt 89.8 kg
[2017-12-17] MEDS ORDERED: DiphenhydrAMINE HCL 50 MG/ML VIAL IV STA (23:16)
--- NOTE | 2017-12-17 23:31 | EMERGENCY ROOM VISIT NOTE ---
History Report prepared by Francisco J: Sly Finley Under the Supervision of: Dr. Cassie Hatfield M.D. First contact with patient: 23:14 Chief Complaint: REFERRED BY DOCTOR Stated Complaint: LIPS NUMB,FLUID-JUST DC FROM C SECTION,REF BY History of Present Illness The patient is a 27 year old female who presents to the Emergency Room with complaints of constant SOB beginning today. The patient states that she was discharged today by her OB following a done 3 days ago. She notes that while she was in the hospital, her blood pressure was elevated. She reports that she was on labetalol for her symptoms. She also complains of lower extremity swelling, hand swelling, and lip swelling but denies any chest pain and headache. The patient states that her leg swelling was 1+ when she was discharged today but notes that her swelling has worsened throughout the day. She reports that she is feeling anxious because she feels as though she cannot breath. The patient states that she took 25mg Benadryl just [employer] and took 100mg labetalol about 6 hours ago. She denies having taken any blood thinners. Source of History: patient Onset: today Position: chest Quality: other (SOB) Timing: constant Associated Symptoms: No headache, No chest pain Note: The patient also complains of lower extremity swelling, hand swelling, and lip swelling. Review of Systems See HPI for pertinent positives & negatives. A total of 10 systems reviewed and were otherwise negative. Past Medical & Surgical Medical Problems: (1) Elevated blood pressure complicating in third trimester, antepartum (2) Elevated liver enzymes Surgical Problems: (1) Previous section Family History Diabetes mellitus Hypertension Social History Smoking Status: Never Smoker Marital Status: Housing Status: lives with family Occupation Status: employed Current/Historical Medications Scheduled Furosemide (Lasix), 1 TAB PO DAILY Labetalol Hcl (Labetalol Hcl), 100 MG PO BID Multivit/Min/Iron/Fol Ac/Pren ( Vitamin), 1 TAB PO DAILY Scheduled PRN Ibuprofen Tab (Motrin), 600 MG PO Q4H PRN for PAIN, MARIANO, CRAMPING, OR FEVER Oxycodone/Acetaminophen 5MG/325MG (Percocet 5MG/325MG), 1 TABLET PO Q4H PRN for Pain Allergies Coded Allergies: Miconazole (Verified Allergy, Intermediate, RASH, 12/17/17) Physical Exam Vital Signs Date Time Temp Pulse Resp B/P (MAP) Pulse Ox O2 Delivery O2 Flow Rate FiO2 12/18/17 02:03 78 18 140/89 99 12/18/17 00:40 75 18 157/94 97 Room Air 12/17/17 23:41 86 12/17/17 22:50 36.6 62 18 158/88 97 Room Air Physical Exam Vital signs reviewed. General: Well-appearing female, in no significant distress. HEENT: No scleral icterus, PERRLA, neck supple. Atraumatic. Mild perioral lip swelling, no posterior oropharyngeal edema. Cardiovascular: Regular rate and rhythm, no extra sounds. Pulmonary: Clear to auscultation bilaterally, normal work of breathing. Abdomen: Soft, nontender, mildly distended abdomen, no tympany, positive bowel sounds. Musculoskeletal: Atraumatic, 2+ pitting edema to bilateral lower extremities. Neurologic: Patient awake alert and oriented x 3, full strength in all 4 extremities. Cranial nerves 2 through 12 grossly intact. Skin: Warm, dry, no rash Medical Decision & Procedures ER Provider Diagnostic Interpretation: Radiology results as stated below per my review and radiologist interpretation: US VENOUS BILATERAL LOWER EXTREMITIES: No evidence of deep vein thrombosis. Radiologist: Bassam Landeros MD. Radiology results as stated below per my review and interpretation: CHEST X-RAY: to my interpretation ? mild pulmonary vascular congestion. No focal lung consolidation, no PTx, normal mediastinal silhouette Laboratory Results 12/17/17 23:33 Red Blood Count 3.61, Mean Corpuscular Volume 89.8, Mean Corpuscular Hemoglobin 29.4, Mean Corpuscular Hemoglobin Concent 32.7, Mean Platelet Volume 10.5, Neutrophils (%) (Auto) 66.1, Lymphocytes (%) (Auto) 23.7, Monocytes (%) (Auto) 5.7, Eosinophils (%) (Auto) 3.9, Basophils (%) (Auto) 0.3, Neutrophils # (Auto) 9.72, Lymphocytes # (Auto) 3.48, Monocytes # (Auto) 0.84, Eosinophils # (Auto) 0.58, Basophils # (Auto) 0.04 12/17/17 23:33 Test 12/17/17 23:33 12/17/17 23:35 White Blood Count 14.71 K/uL (4.8-10.8) Red Blood Count 3.61 M/uL (4.2-5.4) Hemoglobin 10.6 g/dL (12.0-16.0) Hematocrit 32.4 % (37-47) Mean Corpuscular Volume 89.8 fL (80-100) Mean Corpuscular Hemoglobin 29.4 pg (25-34) Mean Corpuscular Hemoglobin Concent 32.7 g/dl (32-36) Platelet Count 390 K/uL (130-400) Mean Platelet Volume 10.5 fL (7.4-10.4) Neutrophils (%) (Auto) 66.1 % Lymphocytes (%) (Auto) 23.7 % Monocytes (%) (Auto) 5.7 % Eosinophils (%) (Auto) 3.9 % Basophils (%) (Auto) 0.3 % Neutrophils # (Auto) 9.72 K/uL (1.4-6.5) Lymphocytes # (Auto) 3.48 K/uL (1.2-3.4) Monocytes # (Auto) 0.84 K/uL (0.11-0.59) Eosinophils # (Auto) 0.58 K/uL (0-0.5) Basophils # (Auto) 0.04 K/uL (0-0.2) RDW Standard Deviation 48.1 fL (36.4-46.3) RDW Coefficient of Variation 14.5 % (11.5-14.5) Immature Granulocyte % (Auto) 0.3 % Immature Granulocyte # (Auto) 0.05 K/uL (0.00-0.02) Prothrombin Time 9.6 SECONDS (9.0-12.0) Prothromb Time International Ratio 0.9 (0.9-1.1) Activated Partial Thromboplast Time 25.5 SECONDS (21.0-31.0) Partial Thromboplastin Ratio 1.0 Anion Gap 8.0 mmol/L (3-11) Est Creatinine Clear Calc Drug Dose 102.1 ml/min Estimated GFR () 100.1 Estimated GFR (Non- 86.4 BUN/Creatinine Ratio 18.9 (10-20) Calcium Level 7.8 mg/dl (8.5-10.1) Magnesium Level 2.3 mg/dl (1.8-2.4) Total Bilirubin 0.3 mg/dl (0.2-1) Direct Bilirubin < 0.1 mg/dl (0-0.2) Aspartate Amino Transf (AST/SGOT) 49 U/L (15-37) Alanine Aminotransferase (ALT/SGPT) 86 U/L (12-78) Alkaline Phosphatase 173 U/L (45-117) Total Protein 5.9 gm/dl (6.4-8.2) Albumin 2.4 gm/dl (3.4-5.0) Urine Color YELLOW Urine Appearance CLEAR (CLEAR) Urine pH 7.0 (4.5-7.5) Urine Specific [place] 1.020 (1.000-1.030) Urine Protein NEG (NEG) Urine Glucose (UA) NEG (NEG) Urine Ketones NEG (NEG) Urine Occult Blood 2+ (NEG) Urine Nitrite NEG (NEG) Urine Bilirubin NEG (NEG) Urine Urobilinogen NEG (NEG) Urine Leukocyte Esterase SMALL (NEG) Urine WBC (Auto) 10-30 /hpf (0-5) Urine RBC (Auto) 10-30 /hpf (0-4) Urine Hyaline Casts (Auto) 1-5 /lpf (0-5) Urine Epithelial Cells (Auto) >30 /lpf (0-5) Urine Bacteria (Auto) NEG (NEG) Date/Time Source Procedure Growth Status 12/17/17 23:35 Urine , Clean Catch Urine Culture - Final MORE THAN THREE TYPES OF ORGANISMS SD... Complete Laboratory results per my review. Medications Administered Medications (Trade) Dose Ordered Sig/Aisha Route Start Time Stop Time Status Last Admin Dose Admin Diphenhydramine HCl (Benadryl Inj) 25 mg NOW STAT IV 12/17/17 23:16 12/17/17 23:20 DC 12/17/17 23:34 25 MG Furosemide (Lasix Inj) 40 mg NOW STAT IV 12/18/17 00:47 12/18/17 00:48 DC 12/18/17 00:56 40 MG ECG Per My Interpretation Indication: SOB/dyspnea Rate (beats per minute): 92 Rhythm: normal sinus Findings: no acute ischemic change, no ectopy, other (Unusual p wave axis) ED Course 2315: Past medical records reviewed. The patient was evaluated in room C3. A complete history and physical examination was performed. 2316: Benadryl Inj 25mg IV 0046: I reviewed the patient's case with Dr. Ryan. She states that the patient had a URI during and was placed on antibiotics and prednisone. She notes that the patient also had a stuffy nose while in the hospital, which was believed to be the cause of her SOB symptoms. 0047: Lasix Inj 40mg IV 0205: Upon reevaluation, the patient appeared to have improvement of her symptoms. I discussed findings with her. She verbalized agreement of the treatment plan. The patient was discharged home. Medical Decision Differential diagnoses include: preeclampsia, HELLP syndrome, allergic reaction , CHF, DVT, and pulmonary embolus. This pt was evaluated and appeared to be in no distress. IV access was obtained and lab work was drawn. Pt was found to be hypertensive but similar to numbers upon discharge. Lab work reveals a leukocytosis c/w recent delivery. CXR is clear to my interpretation. Dopplers BLE are negative for DVT. I suspect the patient has retained throd spaced fluid. She is not . Pt was given IV lasix 40 mg for excess fluid. She was given a Rx lasix 20 mg daily for 7 days. Pt was d/w Dr Russo of [facility]. She feels the pt is ok for d/c for close follow up. Pt was reassured and will return to the ED for further management. Medication Reconcilliation Current Medication List: was personally reviewed by me Blood Pressure Screening Patient's blood pressure: Elevated blood pressure Blood pressure disposition: Referred to PCP Consults Time Called: 43 Consulting Physician: Marcello Blake Returned Call: [phone] I reviewed the patient's case with Dr. Ryan. She states that the patient had a URI during and was placed on antibiotics and prednisone. She notes that the patient also had a stuffy nose while in the hospital, which was believed to be the cause of her SOB symptoms. Impression Primary Impression: Hypertension, condition or complication Additional Impression: Fluid excess Scribe Attestation The scribe's documentation has been prepared under my direction and personally reviewed by me in its entirety. I confirm that the note above accurately reflects all work, treatment, procedures, and medical decision making performed by me. Departure Information Dispostion Home / Self-Care Prescriptions Furosemide (LASIX) 20 Mg Tab 1 TAB PO DAILY for 7 Days, #7 TAB 1 Refill Prov: Cassie Hatfield M.D. 12/18/17 Referrals Heather Thompson M.D. (PCP) Forms HOME CARE DOCUMENTATION FORM, IMPORTANT VISIT INFORMATION, WORK / SCHOOL INSTRUCTIONS Patient Instructions My [facility] Additional Instructions Diagnosis: Hypertension , fluid overload Continue your medications as prescribed. Lasix 20 mg daily in the morning. Follow-up with TRANSPORTATION TECHNICIAN within 1 week for reevaluation. Return to the emergency department for worsening of symptoms or any medical concerns. Problem Qualifiers
[2017-12-17 23:44] LABS: BASO % 0.3 %; BASO ABS # 0.04 K/uL (0-0.2); EOS % 3.9 %; EOS ABS # 0.58 K/uL (0-0.5); HEMATOCRIT 32.4 % (37-47); HEMOGLOBIN 10.6 g/dL (12.0-16.0); IG# 0.05 K/uL (0.00-0.02); LYMPH % 23.7 %; LYMPH ABS # 3.48 K/uL (1.2-3.4); MEAN CELL VOLUME 89.8 fL (80-100); MEAN CORPUSCULAR HEMOGLOBIN 29.4 pg (25-34); MEAN CORPUSCULAR HGB CONC 32.7 g/dl (32-36); MEAN PLATELET VOLUME 10.5 fL (7.4-10.4); MONO % 5.7 %; MONO ABS # 0.84 K/uL (0.11-0.59); NEUT % 66.1 %; NEUT ABS # 9.72 K/uL (1.4-6.5); PLATELET COUNT 390 K/uL (130-400); RED CELL DISTRIBUTION WIDTH CV 14.5 % (11.5-14.5); RED CELL DISTRIBUTION WIDTH SD 48.1 fL (36.4-46.3); WHITE BLOOD COUNT 14.71 K/uL (4.8-10.8)
[2017-12-17] MEDS ORDERED: IBUP-1427 PO (23:50)
[2017-12-17] MEDS ORDERED: LABE100T23 PO (23:50)
[2017-12-17] MEDS ORDERED: OXYC-57 PO (23:50)
[2017-12-18 00:10] LABS: INR 0.9 (0.9-1.1); PTT PATIENT 25.5 SECONDS (21.0-31.0)
[2017-12-18 00:12] LABS: ALBUMIN 2.4 gm/dl (3.4-5.0); ALKALINE PHOSPHATASE 173 U/L (45-117); ALT/SGPT 86 U/L (12-78); AST/SGOT 49 U/L (15-37); BLOOD UREA NITROGEN 17 mg/dl (7-18); CALCIUM 7.8 mg/dl (8.5-10.1); CARBON DIOXIDE 23 mmol/L (21-32); GLUCOSE 79 mg/dl (70-99); POTASSIUM 4.6 mmol/L (3.5-5.1); SODIUM 139 mmol/L (136-145); TOTAL PROTEIN 5.9 gm/dl (6.4-8.2)
[2017-12-18] MEDS ORDERED: FUROSEMIDE 40 MG/4 ML VIAL IV STA (00:47)
[2017-12-18] MEDS ORDERED: FURO-85 PO (01:42)
[2017-12-18 02:03] VITALS: BP 140/89; PULSE 78; O2SAT 99
--- NOTE | 2017-12-18 06:37 | DIAGNOSTIC IMAGING REPORT ---
VENOUS DOPPLER LWR EXT BILA HISTORY: Pain. Edema. BLE edema COMPARISON STUDY: None. FINDINGS: There is normal compressibility, flow, and augmentation within the bilateral lower extremity deep venous systems. IMPRESSION: No DVT within the right or left lower extremity. The above report was generated using voice recognition software. It may contain grammatical, syntax or spelling errors. Electronically signed by: Lawrence Munoz M.D. 12/18/2017 6:35 AM Dictated Date/Time: 12/18/2017 6:35 AM
--- NOTE | 2017-12-18 06:38 | DIAGNOSTIC IMAGING REPORT ---
CHEST ONE VIEW PORTABLE CLINICAL HISTORY: SHORTNESS OF BREATH COMPARISON STUDY: No previous studies for comparison. FINDINGS: The heart is at the upper limits of normal in size. There is no failure. There is no focal pulmonary consolidation. There are no pleural effusions.[ IMPRESSION: No active disease in the chest. Electronically signed by: Hong Faulkner M.D. 12/18/2017 6:37 AM Dictated Date/Time: 12/18/2017 6:36 AM
== END 2017-12-18 02:04 | disposition home or self-care (01) ==
LOC: C.EDB 22:42 → C.EDC 12-18 02:04
DX: O90.89 Other complications of the puerperium, not elsewhere classified (principal); I10 Essential (primary) hypertension; R60.1 Generalized edema; Z88.8 Allergy status to other drugs, medicaments and biological substances; Z83.3 Family history of diabetes mellitus; Z82.49 Family history of ischemic heart disease and other diseases of the circulatory system

== ENCOUNTER 2020-03-22 05:32 | Observation (INO) ==
[2020-03-22] MEDS ORDERED: BETAMETH SOD PHOS/ACETATE IA 6 MG/ML IM STA (06:03)
[2020-03-22] MEDS ORDERED: LACTATED RINGER'S 1,000 ML IV PRN (06:03)
--- NOTE | 2020-03-22 06:21 | Obstetrical Progress Note ---
Date of Service March 22, 2020 Subjective Pt with complete previa at 33 + weeks On arrival, Pt has mild dark bleeding Pelvic : Speculum exam Mild dark blood in the vagina. Cervix is thick. Cervical mucous at os. No active bleeding from cervix. Bedside sono done; Breech presentation with complete previa IV started labs ordered BMTZ ordered Expectant management for now Results & Data ([facility]) Vital Signs (Past 12 Hours) Vital Signs Pulse BP 03/22/20 06:06 100 H 122/75
[2020-03-22 06:31] LABS: Hematocrit (blood only) 32.7 % (37-47); Hemoglobin 10.7 g/dL (12.0-16.0); Mean Corpuscular Hemoglobin 27.4 pg (25-34); Mean Corpuscular Volume 83.8 fL (80-100); Mean Platelet Volume 10.1 fL (7.4-10.4); Platelet Count 388 K/uL (130-400); RDW Coefficient of Variation 13.9 % (11.5-14.5); RDW Standard Deviation 42.1 fL (36.4-46.3); White Blood Count 13.23 K/uL (4.8-10.8)
[2020-03-22 06:39] LABS: Mean Corpuscular Hgb Conc 32.7 g/dL (32-36)
[2020-03-22 06:47] LABS: Albumin Level 2.5 gm/dl (3.4-5.0); Calcium 8.7 mg/dl (8.5-10.1); Creatinine Clr Calc Pharmacy 163.2 ml/min; Est GFR (African American) 144.9; Potassium 3.9 mmol/L (3.5-5.1)
[2020-03-22 06:50] LABS: Albumin Globulin Ratio 0.6 (0.9-2); Bilirubin,Total 0.4 mg/dl (0.2-1); Total Protein 6.5 gm/dl (6.4-8.2)
--- NOTE | 2020-04-02 16:14 | Discharge Summary (DS) ---
CHIEF COMPLAINT: at 33 weeks with complete placenta previa. HISTORY OF PRESENT ILLNESS: This is a 29-year-old G2, P1 at 33 weeks with known complete placenta previa, who presented to labor and delivery with bleeding. On arrival she was stabilized and received a dose of betamethasone on 03/22/2020 as well as 03/23/2020. Patient was then discharged home in stable condition. PAST MEDICAL HISTORY: Unremarkable. PAST SURGICAL HISTORY: History of previous section. ALLERGIES: No known drug allergies. SOCIAL HISTORY: The patient denies tobacco, drug or alcohol use. FAMILY HISTORY: Noncontributory. REVIEW OF SYSTEMS: Negative except as dictated in the HPI. PHYSICAL EXAMINATION: VITAL SIGNS: On day of discharge, temperature was 36.5, respiration was 18, pulse was 112, blood pressure was 132/65. HEART: S1, S2, regular rhythm and rate. LUNGS: Clear to auscultation bilaterally. ABDOMEN: Nontender, nondistended. PELVIC: Mild bleeding. EXTREMITIES: No cyanosis, clubbing or edema. CONDITION ON DISCHARGE: Stable. OPERATION: Observation for bleeding from placenta previa. The patient is stable at the time of discharge. The patient also received betamethasone series. DISCHARGE DIAGNOSES: 1. at 33 weeks. 2. Complete placenta previa. PLAN ON DISCHARGE: The patient is discharged home with instructions regarding activity, diet and followup appointment. The patient is also instructed on pelvic rest.
== END 2020-03-22 12:05 | disposition home or self-care (01) ==
LOC: OPB 05:32 → 4S1 05:37 → INTOOBSV 06:03